=== PATIENT | female | born 1935 | race African-American/Black ===

== ENCOUNTER 2017-12-13 18:03 | Emergency (ER) | payer MEDICARE ==
[2017-12-13 19:07] LABS: Bilirubin,Urine NEG (Negative); Blood,Urine NEG (Negative); Color,Urine Yellow (Yellow); Protein,Urine <15 mg/dL mg/dL (Negative); RBC,Urine < 1.0 /HPF (0.0-6.0); Urobilinogen,Urine < 2.0 mg/dL (<2.0); WBC,Urine < 1.0 /HPF (0.0-6.0)
--- NOTE | 2017-12-13 19:42 | Emergency Department Report ---
ED General Adult HPI - General Chief complaint: Abdominal Pain Stated complaint: BACK PAIN Time Seen by Provider: 12/13/17 19:37 Source: patient, manager costing Mode of arrival: Ambulatory Limitations: Language Barrier - History of Present Illness Initial comments: Mrs. White is 82 yo female who has hx of HTN, DM, dyslipidemia who presents to ER with left kidney pain and leg swelling. Mild pain. Gradual onset. One day duration. left flank I used language line interpretor #[id number] Further hx obtained from EMR, past records. Leg edema was attributed to amiodarone in 2016. In July 2015, normal myocardial perfusion scan EF 71% -: Gradual, days(s) (1) Location: back Radiation: non-radiation Consistency: constant Worsens with: none - Related Data Home Medications Medication Instructions Recorded Confirmed Last Taken Albuterol (Nf) [Proventil TAB] 4 mg PO QDAY 01/28/13 11/27/13 01/28/13 09:00 Omeprazole [Prilosec] 40 mg PO QDAY 01/28/13 11/27/13 01/28/13 09:00 Previous Rx's Medication Instructions Recorded Last Taken Type Acetaminophen [Acetaminophen TAB] 650 mg PO Q4H PRN #60 tablet 01/30/13 Unknown Rx levoFLOXacin [Levaquin TAB] 500 mg PO Q24HR #10 tablet 11/27/13 Unknown Rx Acyclovir [Zovirax Tab] 800 mg PO Q5H #25 tab 08/01/15 Unknown Rx Prednisone [predniSONE 10 mg 10 mg PO .TAPER #1 tab.ds.pk 08/01/15 Unknown Rx (6-Day Pack, 21 Tabs)] Carvedilol [Coreg] 3.125 mg PO BID #60 tablet 08/19/15 Unknown Rx Gabapentin [Neurontin] 300 mg PO QDAY #30 capsule 08/19/15 Unknown Rx HYDROcodone/APAP 5-325 [[place] 1 each PO Q6HR PRN #20 tablet 08/19/15 Unknown Rx 5-325 mg TAB] Lisinopril [Zestril TAB] 10 mg PO QDAY #30 tablet 08/19/15 Unknown Rx Rosuvastatin (Nf) [Crestor] 10 mg PO QHS #30 tablet 08/19/15 Unknown Rx amLODIPine [Norvasc] 5 mg PO DAILY #30 tablet 08/19/15 Unknown Rx glipiZIDE [glipiZIDE ER] 5 mg PO QAM #30 tab.er.24 08/19/15 Unknown Rx oxyCODONE /ACETAMINOPHEN [Percocet 1 tab PO Q6H PRN #30 tablet 08/19/15 Unknown Rx 5/325 mg] Allergies Allergy/AdvReac Type Severity Reaction Status Date / Time No Known Allergies Allergy Verified 12/13/17 18:26 ED Review of Systems ROS: Stated complaint: BACK PAIN Other details as noted in HPI Comment: limited due to age Constitutional: malaise Respiratory: denies: cough Cardiovascular: denies: chest pain ED Past Medical Hx - Past Medical History Previous Medical History?: Yes Hx Hypertension: Yes Hx Diabetes: Yes Hx GERD: Yes Hx Kidney Stones: Yes (with removal) Additional medical history: neuropathy. cholesterol. gout. Renal insufficeincy - Surgical History Past Surgical History?: Yes Additional Surgical History: bilateral knee surgery, kidney stone removal - Social History Smoking Status: Never Smoker Substance Use Type: None - Medications Home Medications: Home Medications Medication Instructions Recorded Confirmed Last Taken Type Albuterol (Nf) [Proventil TAB] 4 mg PO QDAY 01/28/13 11/27/13 01/28/13 09:00 History Omeprazole [Prilosec] 40 mg PO QDAY 01/28/13 11/27/13 01/28/13 09:00 History Acetaminophen [Acetaminophen TAB] 650 mg PO Q4H PRN #60 tablet 01/30/13 Unknown Rx levoFLOXacin [Levaquin TAB] 500 mg PO Q24HR #10 tablet 11/27/13 Unknown Rx Acyclovir [Zovirax Tab] 800 mg PO Q5H #25 tab 08/01/15 Unknown Rx Prednisone [predniSONE 10 mg 10 mg PO .TAPER #1 tab.ds.pk 08/01/15 Unknown Rx (6-Day Pack, 21 Tabs)] Carvedilol [Coreg] 3.125 mg PO BID #60 tablet 08/19/15 Unknown Rx Gabapentin [Neurontin] 300 mg PO QDAY #30 capsule 08/19/15 Unknown Rx HYDROcodone/APAP 5-325 [[place] 1 each PO Q6HR PRN #20 tablet 08/19/15 Unknown Rx 5-325 mg TAB] Lisinopril [Zestril TAB] 10 mg PO QDAY #30 tablet 08/19/15 Unknown Rx Rosuvastatin (Nf) [Crestor] 10 mg PO QHS #30 tablet 08/19/15 Unknown Rx amLODIPine [Norvasc] 5 mg PO DAILY #30 tablet 08/19/15 Unknown Rx glipiZIDE [glipiZIDE ER] 5 mg PO QAM #30 tab.er.24 08/19/15 Unknown Rx oxyCODONE /ACETAMINOPHEN [Percocet 1 tab PO Q6H PRN #30 tablet 08/19/15 Unknown Rx 5/325 mg] ED Physical Exam - General Limitations: Language Barrier General appearance: alert, in no apparent distress - Head Head exam: Present: atraumatic, normocephalic - Eye Eye exam: Present: normal appearance - ENT ENT exam: Present: mucous membranes moist - Neck Neck exam: Present: normal inspection. Absent: tenderness, meningismus - Respiratory Respiratory exam: Present: normal lung sounds bilaterally. Absent: respiratory distress, wheezes, rales, rhonchi - Cardiovascular Cardiovascular Exam: Present: regular rate, normal rhythm, normal heart sounds. Absent: systolic murmur, diastolic murmur, rubs, gallop - GI/Abdominal GI/Abdominal exam: Present: soft. Absent: distended, tenderness, guarding, rebound - Extremities Exam Extremities exam: Present: pedal edema - Back Exam Back exam: Present: normal inspection - Neurological Exam Neurological exam: Present: alert, oriented X3 - Psychiatric Psychiatric exam: Present: normal affect, normal mood - Skin Skin exam: Present: warm, dry, intact, normal color. Absent: rash ED Course Vital Signs 12/13/17 12/13/17 12/13/17 18:12 18:51 19:00 Temperature 97.6 F Pulse Rate 80 74 69 Respiratory 16 13 26 H Rate Blood Pressure 121/59 115/50 O2 Sat by Pulse 99 96 91 Oximetry 12/13/17 12/13/17 12/13/17 19:16 19:30 19:46 Temperature Pulse Rate 70 64 62 Respiratory 21 20 22 Rate Blood Pressure 115/50 115/50 115/50 O2 Sat by Pulse 95 92 94 Oximetry 12/13/17 12/13/17 12/13/17 20:00 20:04 20:22 Temperature Pulse Rate 65 Respiratory 25 H 18 Rate Blood Pressure 114/52 114/52 O2 Sat by Pulse 91 96 Oximetry 12/13/17 12/13/17 12/13/17 20:30 20:46 21:00 Temperature Pulse Rate Respiratory Rate Blood Pressure 114/52 114/52 109/48 O2 Sat by Pulse 94 92 92 Oximetry 12/13/17 12/13/17 12/13/17 21:16 21:30 21:46 Temperature Pulse Rate Respiratory Rate Blood Pressure 114/52 114/52 114/52 O2 Sat by Pulse 94 92 99 Oximetry ED Medical Decision Making - Lab Data Result diagrams: 12/13/17 19:45 12/13/17 19:45 Laboratory Results - last 24 hr 12/13/17 12/13/17 12/13/17 18:45 19:45 19:45 WBC 7.6 RBC 3.51 L Hgb 10.9 Hct 32.2 MCV 92 MCH 31 MCHC 34 RDW 14.3 Plt Count 226 Lymph % (Auto) 28.2 [place] % (Auto) 8.6 H Eos % (Auto) 3.6 Baso % (Auto) 0.7 Lymph # 2.2 [place] # 0.7 Eos # 0.3 Baso # 0.1 Seg Neutrophils % 58.9 Seg Neutrophils # 4.5 Sodium 140 Potassium 4.3 Chloride 104.7 Carbon Dioxide 23 Anion Gap 17 BUN 34 H Creatinine 1.4 H Estimated GFR 36 BUN/Creatinine Ratio 24 Glucose 124 H Calcium 9.2 Total Bilirubin 0.30 Direct Bilirubin < 0.2 Indirect Bilirubin 0.1 AST 14 ALT 9 Alkaline Phosphatase 71 Total Protein 6.5 Albumin 3.9 Albumin/Globulin Ratio 1.5 Urine Color Yellow Urine Turbidity Clear Urine pH 5.0 Ur Specific [place] 1.008 Urine Protein <15 mg/dl Urine Glucose (UA) Neg Urine Ketones Neg Urine Blood Neg Urine Nitrite Neg Urine Bilirubin Neg Urine Urobilinogen < 2.0 Ur Leukocyte Esterase Neg Urine WBC (Auto) < 1.0 Urine RBC (Auto) < 1.0 - Radiology Data Radiology results: report reviewed Abdominal wall hernia, mild ureteral dilataton - Medical Decision Making Abdominal wall hernia present on CT scan without acute abnormality. patient refused pain medication. she feels better. She personally called family member to pick her up from the ER. Critical care attestation.: If time is entered above; I have spent that time in minutes in the direct care of this critically ill patient, excluding procedure time. ED Disposition Clinical Impression: Abdominal hernia, Flank pain Disposition: DC-01 TO HOME OR SELFCARE Is pt being admited?: No Does the pt Need Aspirin: No Condition: Stable Instructions: Ventral Hernia (ED) Time of Disposition: 23:25
[2017-12-13] MEDS ORDERED: ZOFRAN IV ONE (19:46)
[2017-12-13] MEDS ORDERED: MORPHINE IV ONE (19:46)
[2017-12-13 19:54] LABS: Basophils # (Auto) 0.1 K/mm3 (0.0-0.1); Basophils % (Auto) 0.7 % (0.0-1.8); Eosinophils # (Auto) 0.3 K/mm3 (0.0-0.4); Eosinophils % (Auto) 3.6 % (0.0-4.3); Hematocrit 32.2 % (30.3-42.9); Hemoglobin 10.9 gm/dl (10.1-14.3); Lymphocytes # (Auto) 2.2 K/mm3 (1.2-5.4); Lymphocytes % (Auto) 28.2 % (13.4-35.0); Mean Corpuscular HGB Conc 34 % (30-34); Mean Corpuscular Hemoglobin 31 pg (28-32); Mean Corpuscular Volume 92 fl (79-97); Monocytes # (Auto) 0.7 K/mm3 (0.0-0.8); Monocytes % (Auto) 8.6 % (0.0-7.3); Platelet Count 226 K/mm3 (140-440); Red Blood Count 3.51 M/mm3 (3.65-5.03); Red Cell Distribution Width 14.3 % (13.2-15.2)
--- NOTE | 2017-12-13 20:35 | Cat Scan Report ---
FINAL REPORT PROCEDURE: CT ABDOMEN PELVIS WO CON TECHNIQUE: Computerized axial tomography of the abdomen and pelvis was performed without intravenous contrast. This study is performed without intravascular contrast material and its sensitivity for abdominal and pelvic pathology, including neoplasms, inflammation, abscess, free fluid, thrombosis, arterial dissection and infarction, is reduced compared with a contrast enhanced study. HISTORY: flank pain COMPARISON: No prior studies are available for comparison. FINDINGS: Visualized lower thorax: No significant abnormality. Liver: Normal size and attenuation. Spleen: Normal size and attenuation. Gallbladder and biliary system: Normal. Pancreas: Normal. Adrenals: Normal. Kidneys: There is no right-sided urolithiasis. There is mild dilatation of the right ureter. Cannot exclude recently passed calculus. There is left renal atrophy. GI tract: There is a left lumbar abdominal wall hernia, involving the posterior lateral abdominal wall, with herniated segment of left colon, with no obstruction. There is diverticulosis. No bowel obstruction or acute inflammation is seen. Appendix is visualized and does not appear inflamed Lymph nodes and mesentery: Normal. Vasculature: Aortic calcification. Bladder: Normal. Reproductive organs: Normal. Peritoneum: No free fluid. Musculoskeletal structures: Lumbar spine degenerative disc changes. Other: None. IMPRESSION: Abdominal wall hernia involving the left posterior lateral abdominal wall, with a herniated segment of the left colon. No bowel obstruction or inflammation is seen. Correlate with point tenderness to explain the patient's flank pain
[2017-12-13 20:40] LABS: Alanine Aminotransferase 9 units/L (7-56); Albumin 3.9 g/dL (3.9-5); BUN/Creatinine Ratio 24; Blood Urea Nitrogen 34 mg/dL (7-17); Calcium 9.2 mg/dL (8.4-10.2); Hemolysis Index 5
[2017-12-13 20:50] LABS: Bilirubin,Direct < 0.2 mg/dL (0-0.2)
[2017-12-13 23:56] VITALS: BP 103/37
== END 2017-12-13 23:56 | disposition home or self-care (01) ==
LOC: ED 18:03
DX: K45.8 Other specified abdominal hernia without obstruction or gangrene (principal); I10 Essential (primary) hypertension; E11.9 Type 2 diabetes mellitus without complications; K21.9 Gastro-esophageal reflux disease without esophagitis; E78.00 Pure hypercholesterolemia, unspecified; Z98.890 Other specified postprocedural states
CPT/HCPCS: 36415; 74176; 80048; 80074; 81001; 85025; 87086; 96374

== ENCOUNTER 2018-09-23 07:32 | Day surgery (SDC) | payer MEDICARE ==
[2018-09-23] MEDS ORDERED: NACL 0.9% 500 ML 500 ML IV SCH (08:00)
== END 2018-09-23 07:33 | disposition home or self-care (01) ==
LOC: CATHLABREC 07:32
PROVIDERS: ATTEND Internal Medicine Cardiovascular Disease
DX: R07.9 Chest pain, unspecified (principal); E11.42 Type 2 diabetes mellitus with diabetic polyneuropathy; E78.00 Pure hypercholesterolemia, unspecified; I10 Essential (primary) hypertension; K21.9 Gastro-esophageal reflux disease without esophagitis; E66.9 Obesity, unspecified; Z53.8 Procedure and treatment not carried out for other reasons; Z68.30 Body mass index [BMI] 30.0-30.9, adult; Z87.442 Personal history of urinary calculi; Z79.899 Other long term (current) drug therapy; Z98.890 Other specified postprocedural states